=== PATIENT | male | born 1985 | race Caucasian/White ===

== ENCOUNTER 2022-06-05 20:38 | Inpatient (IN) | payer OTHER ==
[~2022-06-05] VITALS: Ht 175.3 cm; Wt 57.8 kg
[~2022-06-05 20:38] MED LIST: FLUO20CA39 PO; FURO40TA5 MT; LACT10SO30 MT; MIDO5TAB4 PO; PROT40 MT; SACU1TAB MT
[2022-06-05 21:14] LABS: BASOPHILS % 0.9 % (0.0-2.0); EOSINOPHILS % 1.2 % (0.0-5.0); HEMATOCRIT. 28.1 % (42.0-52.0); MEAN CORPUSCULAR HEMOGLOBIN 24.9 pg (28.0-32.0); MEAN CORPUSCULAR VOLUME 77.8 fL (80.0-94.0); MONOCYTES % 12.5 % (2.0-8.0); NEUTROPHILS % 63.4 % (40.0-76.0); PLATELET 317 x1000/uL (130-400); RED BLOOD CELL COUNT 3.62 mill/uL (4.7-6.1); RED CELL DISTRIBUTION WIDTH 18.3 % (11.6-14.6)
[2022-06-05 21:25] LABS: CHLORIDE 96 mEq/L (98-107)
[2022-06-05 21:33] LABS: ETHANOL BLOOD < 10 mg/dL
[2022-06-05 21:40] LABS: BG BASE EXCESS -0.7 mmol/L (-2.0-2.0); BG CARBOXYHEMOGLOBIN 0.9 % (0.5-1.5); BG DEOXYHEMOGLOBIN 5.6 % (0.0-5.0); BG FRACTION INSPIRED OXYGEN 21; BG HCO3 ACT 25.5 mmol/L (22.0-26.0); BG METHEMOGLOBIN 0.3 % (0.0-1.5); BG OXYGEN SATURATION 94.3 % (92.0-98.5); BG OXYHEMOGLOBIN 93.2 % (94.0-97.0); BG PCO2 49.4 mmHg (35.0-45.0); BG PH 7.331 (7.350-7.450); BG PO2 72.4 mmHg (75.0-100.0); BG SAMPLE SITE LEFT RADIAL; BG TOTAL HEMOGLOBIN 9.7 g/dL (12.0-18.0); BG VENT MODE ROOM AIR
[2022-06-05] MEDS ORDERED: DEXTROSE 50% WATER 50ML SYRINGE IV ONE (22:00)
[2022-06-05] MEDS ORDERED: DEXT 10% WATER 1,000 ML IV ONE (22:00)
[2022-06-05 22:13] LABS: INR 1.4; PROTHROMBIN TIME 14.5 sec (9.6-11.0)
[2022-06-05] MEDS ORDERED: DEXTROSE 5% WATER 1,000 ML IV ONE (22:45)
[2022-06-06 12:00] VITALS: BP 84/55
[2022-06-06] MEDS: DEXT 5%/0.45% NACL 1000ML 1,000 ML IV SCH (13:12)
[2022-06-06 16:00] VITALS: BP 88/52
[2022-06-06] MEDS: MIDODRINE HCL 5MG TABLET PO SCH (16:32)
[2022-06-06 18:45] VITALS: BP 84/55
[2022-06-06] MEDS ORDERED: PNEUMOCOCCAL 23-VAL P-SAC VAC 0.5 ML IM ONE (19:00)
[2022-06-06 20:00] VITALS: BP 90/68
[2022-06-06] MEDS: LACTULOSE 20G/30ML UDC PO SCH (21:05)
[2022-06-07] VITALS: BP 90/68
[2022-06-07] MEDS: DEXT 5%/0.45% NACL 1000ML 1,000 ML IV SCH (04:40)
[2022-06-07] MEDS: LACTULOSE 20G/30ML UDC PO SCH ×2 (05:41→14:00)
[2022-06-07 08:00] VITALS: BP 99/71
[2022-06-07] MEDS: MIDODRINE HCL 5MG TABLET PO SCH ×3 (08:58→18:12)
[2022-06-07] MEDS ORDERED: FLUOXETINE HCL 20MG CAPSULE PO SCH (09:00)
[2022-06-07] MEDS ORDERED: PANTOPRAZOLE 40MG DR TABLET PO SCH (09:00)
[2022-06-07] MEDS ORDERED: FUROSEMIDE 40MG TABLET PO SCH (09:00)
[2022-06-07 12:00] VITALS: BP_SYST 100; BP_SYST 108; BP_DIAS 76; BP_DIAS 83
[2022-06-07 12:00] LABS: BASOPHILS % 1.4 % (0.0-2.0); HEMATOCRIT. 25.8 % (42.0-52.0); HEMOGLOBIN. 8.3 g/dL (14.0-18.0); LYMPHOCYTES % 15.1 % (20.0-50.0); MEAN CORPUSCULAR HEMOGLOBIN 25.3 pg (28.0-32.0); MEAN CORPUSCULAR VOLUME 78.6 fL (80.0-94.0); MEAN PLATELET VOLUME 9.1 fl (7.4-10.4); MONOCYTES % 11.7 % (2.0-8.0); NEUTROPHILS % 69.8 % (40.0-76.0); PLATELET 376 x1000/uL (130-400); RED BLOOD CELL COUNT 3.29 mill/uL (4.7-6.1); RED CELL DISTRIBUTION WIDTH 18.2 % (11.6-14.6)
[2022-06-07 13:14] LABS: CHLORIDE 97 mEq/L (98-107)
[2022-06-07 14:48] LABS: HEPATITIS B SURFACE ANTIGEN NEGATIVE
[2022-06-07 16:00] VITALS: BP 108/83
[2022-06-07 18:39] VITALS: BP 108/83
[2022-06-07 20:00] VITALS: BP 112/82
== END 2022-06-07 20:01 | disposition home or self-care (01) | DRG 420 ==
LOC: ER 20:38 → MICUSO 23:42 → 6EST 06-06 11:44
PROVIDERS: ADMIT Internal Medicine; ATTEND Internal Medicine
DX: E11.649 Type 2 diabetes mellitus with hypoglycemia without coma (principal); N17.9 Acute kidney failure, unspecified; Z76.82 Awaiting organ transplant status; I42.0 Dilated cardiomyopathy; I50.20 Unspecified systolic (congestive) heart failure; D63.1 Anemia in chronic kidney disease; N18.6 End stage renal disease; E87.1 Hypo-osmolality and hyponatremia; E11.22 Type 2 diabetes mellitus with diabetic chronic kidney disease; K74.60 Unspecified cirrhosis of liver; I07.1 Rheumatic tricuspid insufficiency; Z99.2 Dependence on renal dialysis; Z68.1 Body mass index [BMI] 19.9 or less, adult
CPT/HCPCS: 36415; 36600; 71045; 80048; 80053; 80320; 82140; 82375; 82805; 82962; 83605; 83880; 84145; 84484; 85025; 86705; 86709; 86803; 87340; 93005; 99291; J7070; G0480